=== PATIENT | male | born 1970 | race Caucasian/White ===

== ENCOUNTER 2016-11-22 02:22 | Emergency (ER) | payer SELFPAY ==
[~2016-11-22] VITALS: Ht 165.1 cm; Wt 72.0 kg
[~2016-11-22 02:22] MED LIST: LANT3I SC; METH-493 PO; NOVO3I SC; VITA1TAB83 PO
[2016-11-22 02:29] VITALS: Ht 165.1 cm; Wt 72.0 kg
--- NOTE | 2016-11-22 02:39 | ERA ---
ER Documentation Chief Complaint Date/Time DATE: 11/22/16 TIME: 02:38 Chief Complaint c/o right sided head pain, body shake HPI The patient is a 46-year-old male, presenting to the ER because of right facial numbness, diffuse headache, palpitation, nausea vomiting, diarrhea that began about 9 PM. He appears very anxious, denies chest pain, dyspnea, abdominal pain. He denied dysuria, diarrhea constipation. He has been drinking. Past medical history: Diabetes mellitus, hyperthyroidism Past surgical history: None ROS All systems reviewed and are negative except as per history of present illness. Medications Home Meds Active Scripts Methimazole* (Methimazole*) 5 Mg Tablet, 5 MG PO TID for 30 Days, TAB Prov:ZOYA PATEL MD 01/29/16 Vitamin B Complex (B Complex # 1) 1 Each Tablet, 1 EACH PO DAILY for 30 Days, TAB Prov:ZOYA PATEL MD 01/29/16 Insulin Glargine* (Lantus*) 100 Unit/Ml Soln, 21 UNIT SC QAM for 30 Days, BOT Prov:ZOYA PATEL MD 01/29/16 Insulin Aspart* (Novolog Insulin Pen*) 100 Unit/Ml Soln, 7 UNIT SC WITH MEALS BEDTIME for 30 Days, BOT Prov:ZOYA PATEL MD 01/29/16 Allergies Allergies: Coded Allergies: No Known Allergy (Unverified , 01/26/16) PMhx/Soc History of Surgery: No Anesthesia Reaction: No Hx Neurological Disorder: No Hx Respiratory Disorders: No Hx Cardiac Disorders: No Hx Psychiatric Problems: No Hx Miscellaneous Medical Probl: No Hx Alcohol Use: Yes (ALCOHOLIC) Hx Substance Use: Yes Hx Tobacco Use: No Physical Exam Vitals Vital Signs Date Time Temp Pulse Resp B/P Pulse Ox O2 Delivery O2 Flow Rate FiO2 11/22/16 02:55 98.3 101 16 148/85 96 Room Air 11/22/16 02:29 98.5 127 20 165/110 98 Physical Exam Const: No acute distress.Anxious Head: Atraumatic. Eyes: Normal Conjunctiva. ENT: Normal External Ears, Nose and Mouth. Neck: Full range of motion. No meningismus. Resp: Clear to auscultation bilaterally. Cardio: Regular Tachycardic Abd: Soft, non distended, normal bowel sounds, non tender. Skin: No petechiae or rashes. Back: No midline or flank tenderness. Ext: No cyanosis, or edema. Neur: Awake and alert. No focal deficit Psych: Normal Mood and Affect. Result Diagram: 11/22/16 0245 11/22/16 0245 Results 24 hrs Laboratory Tests Test 11/22/16 02:45 11/22/16 04:00 White Blood Count 7.410^3/ul Red Blood Count 5.2910^6/ul Hemoglobin 14.5g/dl Hematocrit 42.0% Mean Corpuscular Volume 79.4fl Mean Corpuscular Hemoglobin 27.4pg Mean Corpuscular Hemoglobin Concent 34.5g/dl Red Cell Distribution Width 13.3% Platelet Count 50129^3/UL Mean Platelet Volume 9.2fl Neutrophils % 57.0% Lymphocytes % 33.7% Monocytes % 6.9% Eosinophils % 1.1% Basophils % 1.0% Nucleated Red Blood Cells % 0.0/100WBC Neutrophils # 4.210^3/ul Lymphocytes # 2.510^3/ul Monocytes # 0.510^3/ul Eosinophils # 0.110^3/ul Basophils # 0.110^3/ul Nucleated Red Blood Cells # 0.010^3/ul Prothrombin Time 14.3Sec Prothrombin Time Ratio 1.1 INR International Normalized Ratio 1.11 Activated Partial Thromboplast Time 27.7Sec Sodium Level 135mmol/L Potassium Level 4.7mmol/L Chloride Level 93mmol/L Carbon Dioxide Level 21mmol/L Anion Gap 26 Blood Urea Nitrogen 8mg/dl Creatinine 0.60mg/dl Glucose Level 416mg/dl Calcium Level 9.0mg/dl Total Bilirubin 0.6mg/dl Direct Bilirubin 0.00mg/dl Indirect Bilirubin 0.6mg/dl Aspartate Amino Transf (AST/SGOT) 52IU/L Alanine Aminotransferase (ALT/SGPT) 57IU/L Alkaline Phosphatase 163IU/L Total Protein 9.0g/dl Albumin 4.8g/dl Globulin 4.20g/dl Albumin/Globulin Ratio 1.14 Lipase 16U/L Thyroid Stimulating Hormone (TSH) Pending Ethyl Alcohol Level 163.0mg/dl Bedside Glucose 274mg/dL Current Medications Medications (Trade) Dose Ordered Sig/Sariah Route PRN Reason Start Time Stop Time Status Last Admin Dose Admin Lorazepam (Ativan) 1 mg ONCE ONCE IV 11/22/16 03:00 11/22/16 03:01 DC 11/22/16 02:53 Procedures/MDM MEDICAL MAKING DECISION: The patient is a 46-year-old male, presenting with acute anxiety, acute diabetic hyperglycemia acute headache, alcohol abuse. He was treated with Ativan 1 mg IV for acute anxiety, 1 L normal saline for acute diabetic hyperglycemia with good response. The differential diagnoses for acute headacheconsidered include but are not limited to subarachnoid hemorrhage, occult trauma, CVA, meningitis, encephalitis , hypertension, tension, migraine, cluster, narcotic withdrawal, cervical spine disease. EKG: Read by emergency physician Rate/Rhythm: Normal Sinus Rhythm 97 beats/min QRS, ST, T-waves: No ST elevation, no T inversion Impression: Normal EKG Departure Diagnosis: Primary Impression: Acute headache Additional Impressions: Diabetes mellitus with hyperglycemia Anxiety Alcohol abuse Abnormal LFTs Condition: Good Comments The patient's blood pressure was elevated (>120/80) but appears stable without evidence of hypertension emergency or urgency. The patient was counseled about the risks of hypertension and urged to pursue outpatient monitoring and therapy within a week with their primary care physician. I discussed the findings with the patient. I advised the patient to follow-up with the primary physician in about 1-2 days, sooner if needed and return if any concern. BRODY VILLAGOMEZ MD Nov 22, 2016 02:39
[2016-11-22] MEDS ORDERED: LORAZEPAM 2 MG INJ IV ONE (03:00)
--- NOTE | 2016-11-22 03:14 | RADRPT ---
PROCEDURE: Chest. CLINICAL INDICATION: Chest pain. TECHNIQUE: Single frontal view of the chest was obtained. COMPARISON: 01/26/2016. FINDINGS: The cardiac silhouette is within normal limits. The aortic arch is unremarkable. There is no focal consolidation, vascular congestion or pleural effusion. There is no pneumothorax. IMPRESSION: No evidence for active cardiopulmonary disease. .Nicholas Devries MD, Date Time Electronically viewed and signed by .Nicholas Devries MD, on 11/22/2016 03:14 .T/
[2016-11-22 03:30] LABS: BASOPHIL # 0.1 10^3/ul (0.0-0.1); EOSINOPHILS # 0.1 10^3/ul (0.0-0.5); EOSINOPHILS % 1.1 % (0.0-7.0); HEMOGLOBIN 14.5 g/dl (14.0-18.0); LYMPHOCYTES # 2.5 10^3/ul (0.8-2.9); LYMPHOCYTES % 33.7 % (15.0-51.0); MEAN CORPUSCULAR HEMOGLOBIN 27.4 pg (29.0-33.0); MEAN CORPUSCULAR HGB CONC 34.5 g/dl (32.0-37.0); MEAN CORPUSCULAR VOLUME 79.4 fl (82.0-101.0); MEAN PLATELET VOLUME 9.2 fl (7.4-10.4); MONOCYTE # 0.5 10^3/ul (0.3-0.9); MONOCYTES % 6.9 % (0.0-11.0); NEUTROPHIL # 4.2 10^3/ul (1.6-7.5); PLATELET COUNT 287 10^3/UL (140-415); RED BLOOD COUNT 5.29 10^6/ul (4.70-6.10); RED CELL DISTRIBUTION WIDTH 13.3 % (11.5-14.5); WHITE BLOOD COUNT 7.4 10^3/ul (4.8-10.8)
--- NOTE | 2016-11-22 03:37 | RADRPT ---
PROCEDURE: Noncontrast CT Head. CLINICAL INDICATION: Pain. TECHNIQUE: Noncontrast CT of the head was obtained. The administered radiation dose was CTDI vol = 45 mGy, DLP = 720 mGy-cm. One or more of the following dose reduction techniques were used: automate d exposure control, adjustment of the mA and/or kV according to patient size and/or use of iterative reconstruction technique. COMPARISON: No pertinent prior examinations were submitted for comparison. FINDINGS: The ventricles and sulci are within normal limits. There is no acute intracranial hemorrhage or ext ra-axial fluid collection. There is no mass effect. No midline shift is identified. There is no loss of aparicio-white differentiation to suggest acute infarction. The orbits are within normal limits. The paranasal sinuses and mastoid air cells are without fluid. No destructive osseous lesion is identified. IMPRESSION: No acute findings. RPTAT: HIKT .eCsar Mclean MD, MD Date Time Electronically viewed and signed by .Cesar Mclean MD, on 11/22/2016 03:37 .T/
[2016-11-22 03:44] LABS: INR 1.11; PROTIME 14.3 Sec (12.2-14.2); PT RATIO 1.1
[2016-11-22 03:45] LABS: PARTIAL THROMBOPLASTIN TIME 27.7 Sec (25.0-35.0)
[2016-11-22 04:03] LABS: ALANINE AMINOTRANSFERASE 57 IU/L (13-69); ALBUMIN 4.8 g/dl (3.3-4.9); ALBUMIN/GLOBULIN RATIO 1.14; ALKALINE PHOSPHATASE 163 IU/L (42-121); ANION GAP 26 (8-16); ASPARTATE AMINO TRANSFERASE 52 IU/L (15-46); BILIRUBIN,INDIRECT 0.6 mg/dl (0-1.1); BILIRUBIN,TOTAL 0.6 mg/dl (0.2-1.3); BLOOD UREA NITROGEN 8 mg/dl (7-20); CARBON DIOXIDE 21 mmol/L (21-31); CHLORIDE 93 mmol/L (97-110); POTASSIUM 4.7 mmol/L (3.5-5.1); SODIUM 135 mmol/L (135-144)
[2016-11-22 04:04] LABS: GLUCOSE 416 mg/dl (70-220)
[2016-11-22 05:05] LABS: THYROID STIMULATING HORMONE < 0.015 MIU/L (0.465-4.680)
[2016-11-22 05:06] LABS: BARBITURATES Negative (NEGATIVE); BENZODIAZEPINES Negative (NEGATIVE); CANNABINOIDS Negative (NEGATIVE); COCAINE Negative (NEGATIVE); OPIATES Negative (NEGATIVE)
[2016-11-22 05:54] VITALS: BP 139/76; PULSE 101; RESP 18; TEMP 98.7
== END 2016-11-22 05:58 | disposition home or self-care (01) ==
LOC: E/R 02:22
DX: R51 Headache (principal); E11.65 Type 2 diabetes mellitus with hyperglycemia; F41.9 Anxiety disorder, unspecified; F10.10 Alcohol abuse, uncomplicated; R94.5 Abnormal results of liver function studies; R00.2 Palpitations; Z79.4 Long term (current) use of insulin
CPT/HCPCS: 36415; 70450; 71010; 80053; 80306; 80307; 82962; 83690; 84443; 85025; 85610; 85730; 93005; 96374; 99285; J2060

== ENCOUNTER 2017-04-16 21:53 | Emergency (ER) | END 2017-04-17 04:54 | disposition home or self-care (01) ==